=== PATIENT | female | born 1955 | race Caucasian/White ===

== ENCOUNTER 2021-08-07 09:56 | Emergency (ER) | payer OTHER ==
[2021-08-07 10:05] VITALS: BP 98/76; PULSE 158
[2021-08-07] MEDS ORDERED: Diltiazem 25 MG/5 ML SDV IVPUSH ONE (10:07)
--- NOTE | 2021-08-07 10:42 | EDM.PDOC ---
ED HPI GENERAL MEDICAL PROBLEM - General Chief Complaint: Cardiovascular Problem Stated Complaint: PER DR. ENGLAND Time Seen by Provider: 08/07/21 10:08 Source of Information: Reports: Patient History Limitations: Reports: No Limitations - History of Present Illness INITIAL COMMENTS - FREE TEXT/NARRATIVE: 66 y/o F c/o rapid heart beat after her colonoscopy today. Pt had the procedure with no complications and afterwards her post op vitals revealed a tachycardia. Dr. Ji sent the pt to the ER for eval. No hx of tachycardia or heart problems. No hx of thyroid problems, lung prob, digestive prob. Denies pike, cp, db, abd pn, back pn, pelvic pn, ext pain. Today the pt received fentanyl and versed for the procedure. - Related Data Allergies Allergy/AdvReac Type Severity Reaction Status Date / Time amoxicillin Allergy Rash Verified 08/07/21 10:01 Sulfa (Sulfonamide Allergy Rash Verified 08/07/21 10:01 Antibiotics) Home Meds: Home Meds Acetaminophen/Diphenhydramine [Tylenol Pm Ex-Strength Caplet] 1 tab PO ASDIRECTED PRN 04/02/15 [History] Albuterol [Proair HFA] 2 puff INH Q6HR PRN 04/02/15 [History] Budesonide/Formoterol [Symbicort 160-4.5 MCG] 2 puff INH BID PRN 04/02/15 [History] Guar Gum [Nutrisource Fiber] 1 packet CHEW BID 04/02/15 [History] Meclizine [Antivert] 25 mg PO TID PRN 04/02/15 [History] Multivitamin [Multivitamins] 1 tab PO BID 04/02/15 [History] Omeprazole 1 tab PO DAILY 04/02/15 [History] Rosuvastatin Calcium [Crestor] 20 mg PO DAILY 04/02/15 [History] Alendronate Sodium [Fosamax] 70 mg PO .WEEKLY 08/06/21 [History] Ciclopirox [Penlac 8% Nail Lacquer] 1 applic TOP ASDIRECTED 08/06/21 [History] Melatonin 3 - 5 mg PO BEDTIME 08/06/21 [History] Past Medical History HEENT History: Reports: Other (See Below) Other HEENT History: Hx.Refractive error Cardiovascular History: Reports: High Cholesterol, Other (See Below) Other Cardiovascular History: Dyslipidemia. Varicose veins of legs Respiratory History: Reports: Asthma, Pneumonia, Recurrent Gastrointestinal History: Reports: Chronic Constipation, Diverticulosis, GERD, Hemorrhoids, Helicobacter Pylori Genitourinary History: Reports: None [employer] History: Reports: Musculoskeletal History: Reports: Back Pain, Chronic, Fracture, Osteoporosis Other Musculoskeletal History: Hx of Fx. right foot Neurological History: Reports: Vertigo, Other (See Below) Other Neuro History: INSOMNIA Psychiatric History: Reports: Other (See Below) Other Psychiatric History: Hx of Alcoholism. Endocrine/Metabolic History: Reports: Osteoporosis Hematologic History: Reports: None Immunologic History: Reports: None Oncologic (Cancer) History: Reports: None Dermatologic History: Reports: None - Infectious Disease History Infectious Disease History: Reports: Chicken Pox, Helicobacter Pylori, Measles, Mumps, Novel Coronavirus - Past Surgical History Head Surgeries/Procedures: Reports: None HEENT Surgical History: Reports: Oral Surgery Cardiovascular Surgical History: Reports: None Respiratory Surgical History: Reports: None GI Surgical History: Reports: Colonoscopy, EGD, Polypectomy Other GI Surgeries/Procedures: Hx of + H.Pylori. Diverticulosis, colon. Internal hemorrhoids Female Surgical History: Reports: None Endocrine Surgical History: Reports: None Neurological Surgical History: Reports: None Musculoskeletal Surgical History: Reports: None Oncologic Surgical History: Reports: None Dermatological Surgical History: Reports: None Social & Family History - Family History Family Medical History: No Pertinent Family History - Tobacco Use Tobacco Use Status *Q: Never Tobacco User - Caffeine Use Caffeine Use: Reports: Coffee, Soda Other Caffeine Use: 1 COLA DAILY, COUPLE CUPS OF COFFEE DAILY - Recreational Drug Use Recreational Drug Use: No ED ROS GENERAL - Review of Systems Review Of Systems: Comprehensive ROS is negative, except as noted in HPI. ED EXAM, GENERAL - Physical Exam Exam: See Below Exam Limited By: No Limitations General Appearance: Alert, WD/WN, No Apparent Distress Nose: Normal Inspection, Normal Mucosa, No Blood Throat/Mouth: Normal Inspection Head: Atraumatic, Normocephalic Neck: Normal Inspection, Supple, Non-Tender, Full Range of Motion Respiratory/Chest: No Respiratory Distress, Lungs Clear, Normal Breath Sounds, No Accessory Muscle Use, Chest Non-Tender Cardiovascular: No JVD, No Murmur, No Rub, Irregularly Irregular GI/Abdominal: Soft, Non-Tender (Female) Exam: Deferred Rectal (Female) Exam: Deferred Back Exam: Normal Inspection, Full Range of Motion, NT Extremities: Normal Inspection, Normal Range of Motion, Non-Tender, Normal Capillary Refill, No Pedal Edema Neurological: Alert, Oriented, CN II-XII Intact, Normal Cognition, Normal Gait, Normal Reflexes, No Motor/Sensory Deficits Psychiatric: Normal Affect, Normal Mood Skin Exam: Warm, Dry, Intact #1 Interpretation EKG Date: 08/07/21 Time: 09:34 Rhythm: Other (afib rvr) Coy: Normal P-Wave: Absent QRS: Normal ST-T: Normal QT: Prolonged #2 Interpretation EKG Date: 08/07/21 Time: 10:24 Rhythm: NSR Coy: Normal P-Wave: Present QRS: Normal ST-T: Normal QT: Normal Course - Vital Signs Last Recorded V/S: Last Vital Signs Temp 98.0 F 08/07/21 10:02 Pulse 158 H 08/07/21 10:02 Resp 20 08/07/21 10:02 BP 98/76 08/07/21 10:02 Pulse Ox 94 L 08/07/21 10:02 - Orders/Labs/Meds Labs: Laboratory Tests 08/07/21 08/07/21 Range/Units 10:12 10:20 Sodium 139 (136-145) mmol/L Potassium 3.5 (3.5-5.1) mmol/L Chloride 103 (98-107) mmol/L Carbon Dioxide 29 (21-32) mmol/L Anion Gap 10.5 (7-13) mEq/L BUN 8 (7-18) mg/dL Creatinine 0.92 (0.55-1.02) mg/dL Est Cr Clr Drug Dosing 53.39 mL/min Estimated GFR (MDRD) > 60 BUN/Creatinine Ratio 8.7 (No establ ref range) Glucose 208 H (70-99) mg/dL Calcium 8.1 L (8.5-10.1) mg/dL Phosphorus 3.3 (2.6-4.7) mg/dL Magnesium 2.1 (1.8-2.4) mg/dL Total Bilirubin 0.5 (0.2-1.0) mg/dL AST 31 (15-37) U/L ALT 40 (14-59) U/L Alkaline Phosphatase 60 (46-116) U/L Troponin I High Sens 6 (<=51) pg/mL C-Reactive Protein < 0.2 (0.0-0.9) mg/dL Total Protein 6.0 L (6.4-8.2) g/dL Albumin 2.7 L (3.4-5.0) g/dL Globulin 3.3 Albumin/Globulin Ratio 0.82 TSH, Ultra Sensitive 5.61 H (0.36-3.74) uIU/mL SARS-CoV-2 RNA (MIKI) Negative (NEGATIVE) Meds: Medications Discontinued Medications Generic Name Dose Route Start Last Admin Trade Name Freq PRN Reason Stop Dose Admin Diltiazem HCl 20 mg 08/07/21 10:07 08/07/21 10:11 Diltiazem 25 Mg/5 Ml Sdv IVPUSH 08/07/21 10:08 20 mg ONETIME ONE Administration Ondansetron HCl 4 mg 08/07/21 11:16 08/07/21 11:24 Ondansetron 4 Mg/2 Ml Sdv IVPUSH 08/07/21 11:17 4 mg ONETIME ONE Administration - Re-Assessments/Exams Free Text/Narrative Re-Assessment/Exam: 08/07/21 11:35 I discussed the labs, exam, and ekg with pt and expalined the findings. I will have her follow up with her PCP next wekk regarding her ER visit, episode of afib and elevated tsh. Departure - Departure Time of Disposition: 11:36 Disposition: Home, Self-Care 01 Condition: Good Clinical Impression: Atrial fibrillation with RVR, Elevated TSH Instructions: Atrial Fibrillation, Vumx-ed-Rrau Forms: ED Department Discharge Additional Instructions: Monitor your pulse at home for irregularities. If your develop a racing heart beat again or feel dizzy, faint, or nauseated contact your primary care facility or return to the ER. Follow up with your primary care facility next week regarding your ER visit and work up today. Your TSH was elevated today which can indicate your thyroid gland is not functioning properly. When your follow up with your primary care facility next week have them address your tyroid function. If any new symptoms or concerns develop contact your primary care facility or return to the ER. Sepsis Event Note (ED) - Evaluation Sepsis Screening Result: No Definite Risk - Focused Exam Vital Signs: Vital Signs Temp Pulse Resp BP Pulse Ox 08/07/21 10:02 98.0 F 158 H 20 98/76 94 L
[2021-08-07 10:54] LABS: ANION GAP 10.5 mEq/L (7-13); CHLORIDE,CL 103 mmol/L (98-107); SODIUM,NA 139 mmol/L (136-145)
[2021-08-07] MEDS ORDERED: Ondansetron 4 MG/2 ML SDV IVPUSH ONE (11:16)
== END 2021-08-07 11:49 | disposition home or self-care (01) ==
LOC: DL.ED 09:56
DX: I48.91 Unspecified atrial fibrillation (principal); R94.6 Abnormal results of thyroid function studies; E78.00 Pure hypercholesterolemia, unspecified; K21.9 Gastro-esophageal reflux disease without esophagitis; Z88.0 Allergy status to penicillin; Z88.2 Allergy status to sulfonamides; Z79.899 Other long term (current) drug therapy; Z20.822 Contact with and (suspected) exposure to COVID-19
CPT/HCPCS: 36415; 80053; 83735; 84100; 84443; 84484; 86140; 87635; 93005; 96374; 96375; 99285; J2405; J3490; U0002

== ENCOUNTER → 2021-08-07 | Day surgery (SDC) | payer OTHER ==
[~2021-08-07] MED LIST: Dextrose 5%-0.45% NaCl 1,000 ML IV SCH; Midazolam 1 MG/ML 2 ML SDV IV ONE; Midazolam 1 MG/ML 2 ML SDV ONE; Sodium Chloride 0.9% 10 ML Syringe FLUSH PRN; fentaNYL 100 MCG/2 ML SDV IV ONE; fentaNYL 100 MCG/2 ML SDV ONE
--- NOTE | 2021-08-07 10:08 | OR ---
DATE: 08/07/2021 PROCEDURES: Total colonoscopy and multiple cold snare polypectomies. INSTRUMENT USED: PCF-H190DL Olympus video colonoscope. PREMEDICATIONS: Fentanyl 175 mcg intravenous, Versed 4 mg intravenous. Nasal O2 cannula. The procedure was done under pulse oximetry, BP recording, and instant potato processor. INDICATION: The patient with altered bowel habits and rectal bleeding. Colonoscopic examination is done for detection of any polypoid lesions and removal, endoscopic hemostasis therapy if needed. DESCRIPTION OF PROCEDURE: Initial rectal exam showed external hemorrhoidal tags. Rigid anoscopy showed small internal hemorrhoids without bleeding from them. The colonoscope was passed with ease. In the rectum, multiple 3 and 5 mm sized polyps, 2 in number noted. Photograph was taken of the larger polyp. Cold snare polypectomy was done. The tissues were retrieved and sent for histopathology. Numerous scattered diverticula were noted in the distal left colon along with significant deformity. The scope was passed with relative ease up to the ileocecal area. Photographs were taken of the normal-appearing cecum identified by landmarks of appendiceal orifice and double-bulged ileocecal folds. No bleeding was noted from any of the visualized areas at the commencement of the examination. Bowel preparation was found to be adequate, [place] scale 2 in right and left colon, 3 in transverse colon, total score 7. No stricture. No vascular ectasia. No large isolated ulcerations seen. No evidence of diffuse inflammatory bowel disease in the form of friability, contact bleeding, or ulcerations. Probing the proximal sides of folds and flexures using adequate distention and clearing up the stool material, withdrawal of the scope was made, cecum to rectum time over 9 minutes. No bleeding was noted from any of the visualized areas at the completion of examination. IMPRESSION: 1. External and internal hemorrhoids. 2. Diverticulosis. 3. Diminutive rectal polyps. The patient tolerated the procedure well. [facility] /[id number]
[2021-08-07 10:34] VITALS: PULSE 121
[2021-08-07 10:35] VITALS: BP 91/73
--- NOTE | 2021-08-07 11:02 | PN ---
DATE: 08/07/2021 TIME: 9:45 a.m. SUBJECTIVE: Denies any chest pain, palpitations, or exertional dyspnea. No dizziness. Denies any abdominal pain. Admits to having had some palpitations intermittently in the past. No diagnostic studies made those times. No previous history of coronary artery disease. OBJECTIVE: General: Alert and oriented. Appears not to be in distress. Not short of breath at rest. Lungs: No adventitious sounds heard. Abdomen: Soft. Heart: S1, S2 irregular and rapid. No CHF. INVESTIGATIONS: EKG shows atrial fibrillation with moderate rapid ventricular rate and ST-T wave abnormalities. PLAN: Informed of further evaluation and management with reference to recent- onset atrial fibrillation, moderate rapid ventricular rate with ST-T wave abnormalities. Discussed with the ER provider in charge and the patient is transferred there for further evaluation and management, the patient acceptable. IMPRESSION: Atrial fibrillation, external and internal hemorrhoids, colonic diverticulosis, rectosigmoid polyps. [facility] /[id number]
== END | disposition home or self-care (01) ==
LOC: DL.ENDO 06:16
PROVIDERS: ATTEND Internal Medicine Gastroenterology
DX: K62.1 Rectal polyp (principal); K64.8 Other hemorrhoids; K57.31 Diverticulosis of large intestine without perforation or abscess with bleeding; J45.909 Unspecified asthma, uncomplicated; E78.5 Hyperlipidemia, unspecified; K21.9 Gastro-esophageal reflux disease without esophagitis; G47.00 Insomnia, unspecified; M81.0 Age-related osteoporosis without current pathological fracture; Z88.2 Allergy status to sulfonamides; Z88.1 Allergy status to other antibiotic agents
CPT/HCPCS: 45385; 93005; J2250; J3010; J7042

== ENCOUNTER 2021-11-16 07:21 | Day surgery (SDC) | payer MEDICARE, OTHER ==
[~2021-11-16 07:21] MED LIST changes: -Midazolam 1 MG/ML 2 ML SDV IV ONE; +Sodium Chloride 0.9% 10 ML Syringe FLUSH SCH; -fentaNYL 100 MCG/2 ML SDV IV ONE
[2021-11-16] MEDS ORDERED: fentaNYL 100 MCG/2 ML SDV IV ONE ×3 (07:22→08:50)
[2021-11-16] MEDS ORDERED: Midazolam 1 MG/ML 2 ML SDV IV ONE ×3 (07:22→08:51)
[2021-11-16 10:52] VITALS: BP 138/72; PULSE 72
== END 2021-11-16 10:58 | disposition home or self-care (01) ==
LOC: DL.ENDO 07:21
PROVIDERS: ATTEND Internal Medicine Gastroenterology
DX: K29.50 Unspecified chronic gastritis without bleeding (principal); K31.7 Polyp of stomach and duodenum; K21.9 Gastro-esophageal reflux disease without esophagitis; I08.0 Rheumatic disorders of both mitral and aortic valves; J45.909 Unspecified asthma, uncomplicated
CPT/HCPCS: 43239; 87077; J2250; J3010; J7042

== ENCOUNTER 2024-02-05 17:16 | Emergency (ER) | payer MEDICARE, OTHER ==
[2024-02-05 17:50] VITALS: PULSE 85
[2024-02-05] MEDS: Famotidine 20 MG/2 ML SDV IVPUSH ONE (18:28)
[2024-02-05] MEDS: Ondansetron 4 MG/2 ML SDV IVPUSH ONE (18:28)
[2024-02-05] MEDS: Sodium Chloride 0.9% 1,000 ML IV ONE ×2 (18:29→21:43)
[2024-02-05] MEDS: Iopamidol 612 MG/ML 100 ML Bottle IVPUSH ONE (18:30)
[2024-02-05] MEDS: Ketorolac 30 MG/ML SDV IVPUSH ONE (18:42)
[2024-02-05 18:44] LABS: BASOPHILS PERCENT AUTO 0.1 % (0.0-1.0); EOSINOPHILS PERCENT AUTO 0.6 % (1.0-3.0); HEMATOCRIT 43.3 % (37.0-47.0); HEMOGLOBIN 14.2 g/dL (12.0-16.0); LYMPHOCYTES PERCENT AUTO 6.4 % (20.5-50.1); MEAN CORPUSCULAR HEMOGLOBIN 31.8 pg (27.0-34.0); MEAN CORPUSCULAR HGB CONC 32.8 g/dL (33.0-35.0); MEAN CORPUSCULAR VOLUME 96.9 fL (80-100); MONOCYTES PERCENT AUTO 6.4 % (2-8); NEUTROPHILS PERCENT AUTO 86.5 % (42.2-75.2); PLATELET COUNT,PLT 229 10^3/uL (150-450); RED BLOOD CELL COUNT 4.47 10^6/uL (4.2-5.4); WHITE BLOOD CELL COUNT,WBC 10.4 10^3/uL (5.0-10.0)
[2024-02-05 19:05] LABS: A/G RATIO 0.86; ALANINE AMINOTRANSFERASE,ALT 33 U/L (14-59); ALKALINE PHOSPHATASE 66 U/L (46-116); ANION GAP 12.1 mEq/L (7-13); ASPARTATE AMNIOTRANSFERASE,AST 28 U/L (15-37); BILIRUBIN TOTAL 0.5 mg/dL (0.2-1.0); BLOOD UREA NITROGEN,BUN 13 mg/dL (7-18); BUN/CREATININE RATIO 15.5 (No establ ref range); C-REACTIVE PROTEIN < 0.50 ng/dL (<=0.50); CARBON DIOXIDE,CO2 29 mmol/L (21-32); CHLORIDE,CL 102 mmol/L (98-107); CREATININE 0.84 mg/dL (0.55-1.02); EST CRCL DRUG DOSING (CG) 56.88 mL/min; ESTIMATED GFR 75 mL/min (>=60); GLUCOSE RANDOM 123 mg/dL (70-99); LIPASE 36 U/L (16-77); MAGNESIUM 1.9 mg/dL (1.8-2.4); POTASSIUM,K 4.1 mmol/L (3.5-5.1); PROTEIN TOTAL,TP 6.5 g/dL (6.4-8.2); SODIUM,NA 139 mmol/L (136-145)
[2024-02-05 19:11] LABS: LACTIC ACID 1.7 mmol/L (0.4-2.0)
[2024-02-05 19:26] LABS: APPEARANCE,URINE CLEAR (CLEAR); BILIRUBIN,URINE NEGATIVE (NEGATIVE); COLOR,URINE YELLOW (YELLOW); GLUCOSE,URINE NEGATIVE (NEGATIVE); KETONES,URINE 15 (NEGATIVE); LEUKOCYTE ESTERASE,URINE NEGATIVE (NEGATIVE); NITRITE,URINE NEGATIVE (NEGATIVE); OCCULT BLOOD,URINE TRACE-INTACT (NEGATIVE); PH,URINE 7.5 (5.0-9.0); PROTEIN,URINE NEGATIVE (NEGATIVE); UROBILINOGEN,URINE 0.2 mg/dL (0.2-1.0)
[2024-02-05 19:28] VITALS: BP 163/90
[2024-02-05 19:43] LABS: AMORPHOUS SEDIMENT,URINE FEW /HPF (NOT SEEN); BACTERIA,URINE FEW /HPF (0-FEW/HPF); EPITHELIAL CELLS,URINE RARE /HPF (NOT SEEN); MUCUS,URINE RARE /LPF (NOT SEEN); WBC,URINE 0-5 /HPF (0-5/HPF)
[2024-02-05] MEDS: Ondansetron 4 MG in Sodium Chloride 0.9% 50 ML IV ONE (20:05)
[2024-02-05] MEDS: Dicyclomine 20 MG/2 ML SDV IM ONE (20:19)
[2024-02-05] MEDS: Water For Injection, Sterile 20 ML ONE (21:32)
[2024-02-05] MEDS: Metoclopramide 10 MG/2 ML SDV IVPUSH ONE (21:57)
[2024-02-05] MEDS: Morphine 2 MG/ML SYRINGE IVPUSH ONE (21:58)
== END 2024-02-05 22:18 ==
LOC: DL.ED 17:16
DX: E86.0 Dehydration (principal); R10.32 Left lower quadrant pain; J45.909 Unspecified asthma, uncomplicated; E78.00 Pure hypercholesterolemia, unspecified; Z88.0 Allergy status to penicillin; Z88.2 Allergy status to sulfonamides; Z79.51 Long term (current) use of inhaled steroids; Z79.899 Other long term (current) drug therapy
CPT/HCPCS: 36415; 74177; 80053; 81001; 83605; 83690; 83735; 84484; 85025; 86140; 87040; 93005; 93010; 96361; 96365; 96372; 96375; 96376; 99284; 99285-25; J0500; J1885; J2270; J2405; J2765; J3490; J7030; Q9967

== ENCOUNTER 2024-06-27 15:45 | Emergency (ER) | payer MEDICARE, OTHER ==
[2024-06-27] MEDS: Ondansetron 4 MG Tab.DIS PO ONE (16:16)
[2024-06-27 16:49] VITALS: BP 141/74; PULSE 96
== END 2024-06-27 16:45 | disposition home or self-care (01) ==
LOC: DL.ED 15:45
DX: J10.1 Influenza due to other identified influenza virus with other respiratory manifestations (principal); E78.00 Pure hypercholesterolemia, unspecified; K21.9 Gastro-esophageal reflux disease without esophagitis; Z79.899 Other long term (current) drug therapy; Z88.2 Allergy status to sulfonamides; Z88.0 Allergy status to penicillin
CPT/HCPCS: 87428; 99284; A9270

== ENCOUNTER 2024-08-11 21:59 | Emergency (ER) | payer MEDICARE, OTHER ==
[2024-08-11 22:17] VITALS: BP 135/91; PULSE 87
[2024-08-11] MEDS ORDERED: Sodium Chloride 0.9% 10 ML Syringe FLUSH PRN (23:17)
[2024-08-11 23:36] LABS: BASOPHILS PERCENT AUTO 0.3 % (0.0-1.0); EOSINOPHILS PERCENT AUTO 3.7 % (1.0-3.0); HEMATOCRIT 37.9 % (37.0-47.0); HEMOGLOBIN 12.1 g/dL (12.0-16.0); LYMPHOCYTES PERCENT AUTO 21.2 % (20.5-50.1); MEAN CORPUSCULAR HGB CONC 31.9 g/dL (33.0-35.0); MEAN CORPUSCULAR VOLUME 97.2 fL (80-100); MONOCYTES PERCENT AUTO 9.3 % (2-8); NEUTROPHILS PERCENT AUTO 65.5 % (42.2-75.2); PLATELET COUNT,PLT 349 10^3/uL (150-450); WHITE BLOOD CELL COUNT,WBC 10.4 10^3/uL (5.0-10.0)
[2024-08-11 23:56] LABS: A/G RATIO 0.73; ALBUMIN 2.7 g/dL (3.4-5.0); ANION GAP 11.8 mEq/L (7-13); BILIRUBIN TOTAL 0.3 mg/dL (0.2-1.0); BUN/CREATININE RATIO 14.3 (No establ ref range); CALCIUM 8.8 mg/dL (8.5-10.1); CREATININE 0.84 mg/dL (0.55-1.02); EST CRCL DRUG DOSING (CG) 56.08 mL/min; MAGNESIUM 2.2 mg/dL (1.8-2.4); POTASSIUM,K 3.8 mmol/L (3.5-5.1); PROTEIN TOTAL,TP 6.4 g/dL (6.4-8.2)
[2024-08-12 00:14] LABS: BILIRUBIN,URINE NEGATIVE (NEGATIVE); COLOR,URINE YELLOW (YELLOW); GLUCOSE,URINE NEGATIVE (NEGATIVE); KETONES,URINE NEGATIVE (NEGATIVE); LEUKOCYTE ESTERASE,URINE SMALL (NEGATIVE); NITRITE,URINE NEGATIVE (NEGATIVE); OCCULT BLOOD,URINE TRACE-INTACT (NEGATIVE); PROTEIN,URINE TRACE (NEGATIVE); UROBILINOGEN,URINE 0.2 mg/dL (0.2-1.0)
[2024-08-12 00:15] LABS: APPEARANCE,URINE SLIGHTLY CLOUDY (CLEAR)
[2024-08-12] MEDS: Iopamidol 612 MG/ML 100 ML Bottle IVPUSH ONE (00:20)
[2024-08-12 00:22] LABS: BACTERIA,URINE FEW /HPF (0-FEW/HPF); EPITHELIAL CELLS,URINE FEW /HPF (NOT SEEN); RBC,URINE 0-5 /HPF (0-5); WBC,URINE 20-30 /HPF (0-5/HPF)
[2024-08-12 00:23] LABS: MUCUS,URINE MANY /LPF (NOT SEEN)
[2024-08-12] MEDS ORDERED: metroNIDAZOLE 250 MG Tab PO ONE (01:49)
[2024-08-12] MEDS: Lactated Ringers 1,000 ML IV SCH (01:58)
[2024-08-12] MEDS: ceFAZolin 2 GM Vial IVPUSH ONE (02:01)
[2024-08-12] MEDS: metroNIDAZOLE/Normal Saline 500 MG in Premix Bag 1 BAG IV ONE (02:02)
[2024-08-12] MEDS: Ondansetron 4 MG/2 ML SDV IVPUSH ONE (03:03)
== END 2024-08-12 03:28 ==
LOC: DL.ED 21:59
DX: K35.30 Acute appendicitis with localized peritonitis, without perforation or gangrene (principal); E78.00 Pure hypercholesterolemia, unspecified; J45.909 Unspecified asthma, uncomplicated; K21.9 Gastro-esophageal reflux disease without esophagitis; Z88.0 Allergy status to penicillin; Z88.2 Allergy status to sulfonamides; Z79.51 Long term (current) use of inhaled steroids; Z79.899 Other long term (current) drug therapy
CPT/HCPCS: 36415; 74177; 80053; 81001; 83690; 83735; 85025; 87086; 87088; 96365; 96375; 99285-25; J0690; J1836; J2405; J7120; Q9967